=== PATIENT | female | born 1960 | race African-American/Black ===

== ENCOUNTER 2017-02-22 13:15 | Inpatient (IN) | payer OTHER ==
--- NOTE | ~2017-02-22 | HP ---
History And Physical [id number] [place]. [address] NAME: RAFFI KEATING : 60 STATUS : ADM IN [facility]#: [id number] AGE: 56 ADM/REG DATE : 02/22/17 MR#: [id number] REPORT SERV DATE: 02/22/17 DICTATED BY: ZAID PATEL DATE: 02/22/17 REPORT STATUS : Draft TRANSCRIBED BY: MODEvens DATE: 02/22/17 DATE OF ADMISSION: 02/22/2017 CHIEF COMPLAINT: Uncontrolled pain. 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 Duy Frausto has been treating her with chemotherapy. The patient does not recall the name of the drug at this time, was in Dr. Turner's office as she is followed by Palliative Care. She had significant pain mainly in the chest and in the left shoulder, left arm area. She denied any nausea, vomiting, or diaphoresis. She said that she was warned of this when she started her chemo. She has not had any fever, chills, cough, wheezing, or shortness of breath. When she arrived, she was in significant pain and crying. We have given her 2 mg of IV Dilaudid. She appears fairly comfortable at this time. REVIEW OF SYSTEMS: The patient has somewhat been unable to eat and has lost significant amount of weight, but otherwise, 10-point review of systems is negative. PAST MEDICAL HISTORY: Significant for right thigh sarcoma with pulmonary metastases, gastroparesis, chronic pain disorder, chronic obstructive pulmonary disease, hepatitis C, and right-sided pneumothorax with a continuous air leak. PAST SURGICAL HISTORY: Significant for a cholecystectomy and right thigh sarcoma resection with an open nonhealing wound at this time. ALLERGIES: NO KNOWN DRUG ALLERGIES. HOME MEDICATIONS: Unable to obtain from the patient; however, she takes almost 100 mg of morphine five times a day with 15 mg of oxycodone four times daily, and her chemotherapy. SOCIAL HISTORY: This patient has smoked one pack per day for 40 years, continues to smoke. Denies use of alcohol. Lives in [place]. Has two children. She is single and disabled. FAMILY HISTORY: Significant for heart disease in both parents. PHYSICAL EXAMINATION: GENERAL: White female sitting on the bed, appears to be older than her stated age, appears emaciated. VITAL SIGNS: Blood pressure is 113/75, temperature is 99.0, pulse of 93, and saturation of 92% on 2 liters. HEENT: Head is normocephalic and atraumatic. Pupils are equal, round, and reactive to light. Extraocular muscles are intact. Sclerae are anicteric. Conjunctivae are normal. Oropharynx without lesion. Tongue protrusion midline. Uvula midline. NECK: Supple. No jugular venous distention. No carotid bruits or thyromegaly is appreciated. No lymphadenopathy in the neck is palpable. History And Physical [address] [address] NAME: RAFFI KEATING : 60 STATUS : ADM IN [facility]#: [id number] AGE: 56 ADM/REG DATE : 02/22/17 MR#: [id number] REPORT SERV DATE: 02/22/17 DICTATED BY: ZAID PATEL DATE: 02/22/17 REPORT STATUS : Draft TRANSCRIBED BY: LETTY DATE: 02/22/17 HEART: Mild tachycardia. No murmurs, rubs, or gallops. PMI nondisplaced. LUNGS: Fairly clear to auscultation, both anteriorly and posteriorly without rales, rhonchi, wheezing, or consolidation. ABDOMEN: Scaphoid, soft, and nontender. Good bowel sounds. No rebound or guarding. No organomegaly. EXTREMITIES: Without cyanosis, clubbing, or edema. Right thigh open wound is noted, appears clean and dry. No evidence of any purulent material in the wound. NEUROLOGICAL: Seems to be grossly intact at this time. LABORATORIES: No labs are available at this time. IMPRESSION: 1. Right thigh sarcoma with pulmonary metastasis. 2. Functional gastroparesis. 3. Severe protein-calorie malnutrition. 4. History of hepatitis C. 5. Chronic obstructive pulmonary disease. 6. Chronic pain syndrome with escalating pain as to the reason for her admission. PLAN: The patient will be admitted. Dr. Turner will be asked to see the patient. We will continue home medications when available. I will start her on a morphine PARTS BACK COUNTER MAN with 1 mg q.15 minutes and 4 mg/hour lockout. We will give her IV fluids. We will give her nebulizing treatments and regular diet. At this time, the patient remains a full code. We will ask wound nurse to see the patient for the right thigh wound. MARTI/LETTY Zaid Patel M.D. / [id number] CC: Krysta West M.D. Davey B. Daniel, M.D.
--- NOTE | ~2017-02-22 | DS ---
Discharge Summary [facility] [address] [facility] [place]. [address] NAME: RAFFI KEATING : 60 STATUS : DIS IN PAT#: [id number] AGE: 56 ADM/REG DATE : 02/22/17 MR#: [id number] REPORT SERV DATE: 02/24/17 DICTATED BY: ZAID PATEL DATE: 02/23/17 REPORT STATUS : Draft TRANSCRIBED BY: MODL DATE: 02/23/17 ADMISSION DATE: 02/22/2017 DISCHARGE DATE: 02/23/2017 DISCHARGE DIAGNOSES: 1. Metastatic sarcoma of the thigh to the lung. 2. Increased pain due to acute inflammation from use of Votrient. 3. Chronic obstructive pulmonary disease. 4. Severe calorie malnutrition. 5. History of hepatitis C. 6. Functional gastroparesis due to use of large amounts of narcotics to control pain. CONSULTANTS DURING THIS HOSPITALIZATION: Dr. Duy Frausto of Oncology, Dr. Waldo Turner of Palliative Care. INVASIVE PROCEDURES DONE DURING THIS HOSPITALIZATION: None. BRIEF HISTORY OF PRESENT ILLNESS: The patient is a 56-year-old white female, referred from Dr. Turner's office for uncontrolled pain. She was admitted. For detailed history and physical exam, please see my note dictated on 02/22/2017. HOSPITAL COURSE: After being admitted to the hospital, this patient was evaluated. She was placed on a morphine MANAGER OF SOFTWARE with large doses and it required significant amount of pain medicine to control that. She was placed on IV Solu-Medrol as well. This patient had an unusual rapid recovery of her pain and her inflammation with the use of prednisone. She was weaned off her morphine MANAGER OF SOFTWARE and then placed on her home oral regimen. Today, she is sitting up in bed and feels that she wants to go home and recover in the outpatient setting. Chest x-ray revealed a large mass occupying the left lung. This patient then had a CT scan of the chest which shows once again a very large mass occupying the entire left lung. She has some consolidation at the left lower lobe which is most atelectatic and she also has some pleural effusions at both lung bases. But she feels well. She is at her baseline of her home O2 and wants to go home and follow up in the outpatient setting. DISCHARGE DISPOSITION: Home. DISCHARGE ACTIVITY: As tolerated. DISCHARGE DIET: As tolerated. DISCHARGE MEDICATIONS: Medrol Dosepak as directed, MS Contin 500 mg every eight hours scheduled, Roxicodone 90 mg three times daily scheduled, Votrient 800 mg p.o. daily, Ambien 500 mg p.o. at bedtime. DISCHARGE FOLLOWUP: With Dr. Duy Frausto next week, with Dr. Waldo Turner next week. About 20 minutes spent planning this patient's discharge, reconciling medications, writing Discharge Summary [address] [address] NAME: RAFFI KEATING : 60 STATUS : DIS IN PAT#: [id number] AGE: 56 ADM/REG DATE : 02/22/17 MR#: [id number] REPORT SERV DATE: 02/24/17 DICTATED BY: ZAID PATEL DATE: 02/23/17 REPORT STATUS : Draft TRANSCRIBED BY: LETTY DATE: 02/23/17 prescriptions, discussing hospital care, and followup with the patient and documenting this discharge. MARTI/LETTY Zaid Patel M.D. / [id number] CC: Krysta West M.D. Robert Warren Goldmann, M.D.
[~2017-02-22 13:15] MED LIST: *DENIES; BEN25 PO; BIST PO; DEX4 PO; FLUCON1 PO; MIRALAXPKT PO; MS CONTIN200 MG PO; MSCONT100 PO; MSCONT60 PO; NEXIUM40 PO; OXYCOD PO; OXYCON10 PO; OXYCON40 PO; PCET PO; PR25 PO; PRILO PO; PROTONIX PO; PROVHFA INH; REG PO; ROXICODONE15 MG PO; ROXICODONE30 MG PO; SENTAB PO; SUCR PO; TESS PO; VITAMIN D2000 UNIT PO; ZOFRAN ODT4 MG PO; ZOFRAN4 PO; [UNRECOGNIZED DRUG - OTHER] PO; [UNRECOGNIZED DRUG - OTHER] V
[2017-02-22] MEDS ORDERED: MSCONT100 (15:26)
[2017-02-22] MEDS ORDERED: MSCONT100 PO (22:01)
[2017-02-22] MEDS ORDERED: AMB5 PO (22:02)
[2017-02-22] MEDS ORDERED: ROXICODONE30 MG PO (22:02)
[2017-02-22] MEDS ORDERED: VOTRIENT200 MG PO (22:02)
[2017-02-22 22:13] LABS: BASOPHILS 0.1 %; BASOPHILS ABSOLUTE 0.01 10/3/uL (0.0-0.16); EOSINOPHILS 0 %; HEMOGLOBIN 13.4 g/dL (12.0-16.0); IMMATURE GRANULOCYTES 0.1 %; IMMATURE GRANULOCYTES ABSOLUTE 0.01 10/3/uL (0.0-0.11); LYMPHOCYTES 3.6 %; LYMPHOCYTES ABSOLUTE 0.26 10/3/uL (0.67-4.30); MEAN CORPUS HGB CONC 32.7 g/dL (32.0-36.0); MEAN CORPUSCULAR HEMOGLOB 30.7 pg (26.0-34.0); MEAN PLATELET VOLUME 9.6 fL (9.2-13.0); MONOCYTES 1.1 %; MONOCYTES ABSOLUTE 0.08 10/3/uL (0.21-1.20); NEUTROPHILS 95.1 %; NEUTROPHILS ABSOLUTE 6.84 10/3/uL (2.02-8.40); PLATELET COUNT 223 10/3/uL (150-400); RBC DISTRIBUTION WIDTH 16.5 % (12.0-16.0); RED CELL COUNT 4.37 10/6/uL (4.0-5.6); WHITE BLOOD CELLS 7.2 10/3/uL (4.5-10.5)
[2017-02-22 22:18] LABS: MANUAL DIFF NO %; MEAN CORPUSCULAR VOLUME 93.8 fL (80-100)
[2017-02-22 22:24] LABS: BUN (BLOOD UREA NITROGEN) 9 MG/DL (6-23); CALCIUM, SERUM 8.7 MG/DL (8.5-10.4); CHLORIDE, SERUM 103 MMOL/L (96-112); CO2 (CARBON DIOXIDE) 31 MMOL/L (24-34); CREATININE 0.76 MG/DL (0.55-1.02); GFR AFRICAN AMERICAN 102 ML/MIN (>=60); GFR NON AFRICAN AMERICAN 88 ML/MIN (>=60); GLUCOSE, SERUM 130 MG/DL (60-99); PHOSPHORUS, SERUM 3.6 MG/DL (2.5-4.5); POTASSIUM, SERUM 4.6 MMOL/L (3.5-5.3); SODIUM, SERUM 139 MMOL/L (135-148)
[2017-02-22 23:02] LABS: PROCALCITONIN <0.05 ng/mL (<0.5)
[2017-02-23] MEDS ORDERED: MEDROLPAK4 PO (09:44)
== END 2017-02-23 10:45 | disposition home or self-care (01) | DRG 947 ==
LOC: 4EA 13:15
PROVIDERS: Internal Medicine
DX: G89.3 Neoplasm related pain (acute) (chronic) (principal); E43 Unspecified severe protein-calorie malnutrition; C49.20 Malignant neoplasm of connective and soft tissue of unspecified lower limb, including hip; C78.00 Secondary malignant neoplasm of unspecified lung; K31.84 Gastroparesis; Z68.1 Body mass index [BMI] 19.9 or less, adult; J44.9 Chronic obstructive pulmonary disease, unspecified; Z51.5 Encounter for palliative care; F17.210 Nicotine dependence, cigarettes, uncomplicated; Z79.899 Other long term (current) drug therapy
CPT/HCPCS: 71010; 71250; 80048; 83605; 83735; 83880; 84100; 84145; 85025; 94640; A9270-GY; J1170; J2270; J2920

== ENCOUNTER 2017-03-10 06:57 | Emergency (ER) | payer OTHER, MEDICARE ==
[2017-03-10 05:23] LABS: BASOPHILS 0 %; EOSINOPHILS 0 %; HEMATOCRIT 44.2 % (36.0-48.0); HEMOGLOBIN 14.1 g/dL (12.0-16.0); IMMATURE GRANULOCYTES 0.2 %; IMMATURE GRANULOCYTES ABSOLUTE 0.03 10/3/uL (0.0-0.11); LYMPHOCYTES 3.9 %; LYMPHOCYTES ABSOLUTE 0.63 10/3/uL (0.67-4.30); MEAN CORPUS HGB CONC 31.9 g/dL (32.0-36.0); MEAN CORPUSCULAR HEMOGLOB 31.5 pg (26.0-34.0); MEAN PLATELET VOLUME 10.2 fL (9.2-13.0); MONOCYTES 5.6 %; MONOCYTES ABSOLUTE 0.89 10/3/uL (0.21-1.20); NEUTROPHILS 90.3 %; NEUTROPHILS ABSOLUTE 14.45 10/3/uL (2.02-8.40); PLATELET COUNT 206 10/3/uL (150-400); RBC DISTRIBUTION WIDTH 15.9 % (12.0-16.0); RED CELL COUNT 4.47 10/6/uL (4.0-5.6)
[2017-03-10 05:24] LABS: ER CBC TAT 0 Hrs 09 Mins; MANUAL DIFF NO %; MEAN CORPUSCULAR VOLUME 98.9 fL (80-100)
[2017-03-10 05:31] LABS: CHLORIDE, SERUM 99 MMOL/L (96-112); CREATININE 0.61 MG/DL (0.55-1.02); GFR AFRICAN AMERICAN 117 ML/MIN (>=60); GFR NON AFRICAN AMERICAN 101 ML/MIN (>=60); POTASSIUM, SERUM 5.4 MMOL/L (3.5-5.3); SODIUM, SERUM 141 MMOL/L (135-148)
[2017-03-10 05:33] LABS: BUN (BLOOD UREA NITROGEN) 26 MG/DL (6-23); CALCIUM, SERUM 9.7 MG/DL (8.5-10.4); CO2 (CARBON DIOXIDE) 38 MMOL/L (24-34); GLUCOSE, SERUM 103 MG/DL (60-99)
[~2017-03-10 06:57] MED LIST changes: +AMB5 PO; +MEDROLPAK4 PO; +MSCONT100; +VOTRIENT200 MG PO
== END 2017-03-10 09:30 | disposition home or self-care (01) ==
LOC: ER 06:57
PROVIDERS: Specialist
DX: J44.9 Chronic obstructive pulmonary disease, unspecified (principal); C49.20 Malignant neoplasm of connective and soft tissue of unspecified lower limb, including hip; C78.02 Secondary malignant neoplasm of left lung; F17.200 Nicotine dependence, unspecified, uncomplicated
CPT/HCPCS: 71010; 80048; 85025; 93005; 94640; 99285